=== PATIENT | male | born 1975 | race Caucasian/White ===

== ENCOUNTER 2017-01-27 18:15 | Observation (INO) | payer MEDICAID ==
[~2017-01-27] VITALS: Ht 182.9 cm; Wt 87.0 kg
--- NOTE | ~2017-01-27 | HP ---
PATIENT'S NAME: [facility]ER [facility] AGE: 41 Y [address] ROOM: [place] [address] LOCATION: [facility] ADMIT DATE: 01/27/2017 History & Physical DISCHARGE DATE: FAMILY PHYSICIAN: PHYSICIAN, UNKNOWN ATTENDING PHYSICIAN: ROLY DICKEY DATE OF SERVICE: CHIEF COMPLAINT: Seizures and polysubstance intoxication. HISTORY OF PRESENTING ILLNESS: This 41-year-old white male with a previous history of seizure disorder and medical noncompliance was transferred to [facility] from [facility] after a couple of seizures, which occurred earlier today. The available information in the chart is fragmented. Apparently, he had a seizure outside of the hospital and was taken in for an evaluation. He had another seizure while he was there and received Ativan while he was there. After his arrival here, he admitted that he may have missed "a couple of pills" referencing his seizure medication. He indicates that his last seizure was about 5 years ago. On my initial evaluation here on the floor, the patient was difficult to arouse. He appeared to be consciously avoiding interaction, but did become arousable with stimulation. He reported feeling "good." He denied headache, dizziness, or nausea. Denied any blurred vision. No numbness or tingling in his extremities. He indicates that his appetite has been good and he ate earlier today. He cannot remember what he ate. He has been stooling and voiding normally. He denies numbness or tingling in his extremities. There was some concern for polysubstance ingestion. A drug screen done at the outside facility was positive for cannabis and amphetamine. When asked the patient about his substance use, he did not answer me. ALLERGIES: SULFA, TYLENOL, AND INFLUENZA. ILLNESSES: 1. Seizure disorder. 2. Explosive personality disorder. 3. Polysubstance use. CURRENT MEDICATIONS: 1. Keppra (dose unknown). 2. Zonegran 100 mg 3 capsules b.i.d. PATIENT'S NAME: [facility]ER [facility] AGE: 41 Y [address] ROOM: [address] [address] LOCATION: [facility] ADMIT DATE: 01/27/2017 History & Physical DISCHARGE DATE: FAMILY PHYSICIAN: PHYSICIAN, UNKNOWN ATTENDING PHYSICIAN: ROLY DICKEY 3. Ibuprofen 200 mg q.i.d. p.r.n. FAMILY HISTORY: Negative for seizure disorder. SOCIAL HISTORY: He is unmarried and lives in [facility]. There is a significant history of tobacco use; although, he is unable to quantify. It is also suspected that he uses cannabis, methamphetamine, and alcohol concomitantly. REVIEW OF SYSTEMS: As per HPI. The remainder of review of systems are obtained in limited fashion and are otherwise negative. OBJECTIVE: VITAL SIGNS: Temperature 97.9, pulse 92, respirations 18, blood pressure 124/76, and O2 sat 97% on room air. GENERAL: He is lethargic, but arousable in no acute distress. He demonstrates aversion type behavior. SKIN: Supple, warm, and dry. There are numerous areas of excoriation over the face and upper extremities. There is some dirt and debris in the intertriginous areas, but no other skin rashes. HEENT: Otherwise, normocephalic. Sclerae nonicteric. Pupils equal, round, and reactive to light and accommodation. Extraocular movements appear intact. Nasal turbinates normal in appearance. Oropharynx clear. Mucous membranes are pink and moist. He is edentulous. NECK: Supple. No masses or adenopathy. No thyromegaly. No JVD. CHEST: Chest wall is symmetrical. HEART: Tachycardic, but regular. There are occasional extrasystoles. LUNGS: Coarse diminished with long expiratory phase. No vinny wheezes. No areas of consolidation. ABDOMEN: Soft, nontender. Bowel sounds are present. No mass or hepatosplenomegaly. and RECTAL: Not done. EXTREMITIES: Display no clubbing, edema, or cyanosis. NEUROLOGICAL: Mentation is slowed. There are no focal deficits. LABORATORY AND X-RAY DATA: A lactate was elevated at 9.5. CBC showed an elevated white blood cell count at 12.3. ASSESSMENT AND PLAN: 1. Seizure disorder. Suspect medication noncompliance and polysubstance use as contributing factors. He is currently stable. We will plan to resume Zonegran. We will use Ativan for breakthrough seizures tonight. We will PATIENT'S NAME: [facility] AGE: 41 Y [address] ROOM: [id number] [place], [place] [address] LOCATION: [facility] ADMIT DATE: 01/27/2017 History & Physical DISCHARGE DATE: FAMILY PHYSICIAN: PHYSICIAN, UNKNOWN ATTENDING PHYSICIAN: ROLY DICKEY await Neurology evaluation and further recommendations. 2. Lactic acidosis. Suspect this is secondary to seizure. He did receive some antibiotic therapy in [facility], but I do not see any clinical evidence for infection. We will follow lactate serially and hydrate him for now. 3. Polysubstance use including suspected methamphetamine. He did screen positive for amphetamine at the outside facility in addition to cannabis. We will monitor for withdrawal. We will also get a serum ethanol level and follow up on that when the results are known. In the meantime, we will schedule some Ativan, but hold it for sedation. We will have Care Management see him and explore options for treatment. 4. Explosive personality disorder. Currently, stable and controlled. We will try to manage symptoms carefully. Avoid confrontational interactions. 5. Deep venous thrombosis prophylaxis. We will follow the venous thromboembolus protocol. MD REINALDO PRYOR/hansel /[id number] D: [id number] T: [id number] HISTORY & PHYSICAL
[2017-01-27] MEDS ORDERED: ZONEGRAN100 M1 PO (21:04)
[2017-01-27] MEDS ORDERED: TYLENOL325 MG PO (21:05)
[2017-01-27] MEDS ORDERED: ADVIL LIQUI-GE200 MG PO (21:05)
--- NOTE | 2017-01-27 22:34 | NUR ---
PATIENT ARRIVES VIA COT ACCOMPANIED BY FLIGHT TEAM. PATIENT IS DROWSY BUT EASILY WOKEN BY NAME AND LIGHT TOUCH. PATIENT COMPLAINING OF A HEADACHE REQUESTING PAIN MEDICATION. DR. DICKEY NOTIFIED OF PATIENT'S ARRIVAL. NO ORDERS OBTAINED FOR PAIN AT THIS TIME UNTIL PHYSICIAN ASSESSMENT IS PERFORMED. PATIENT HAS MULTIPLE SCABS ALL OVER FACE AND ARMS. PATIENT REPORTS HE "PICKS." IN TRANSFER PAPERWORK THERE IS RESULTS FOR POSITIVE DRUG TESTS. IT WAS ALSO REPORTED THAT THE PATIENT AT ONE TIME BECAME COMBATIVE. THERE IS NO EVIDENCE OF THIS AT THIS TIME. PATIENT IS VERY COOPERATIVE AND SLEEPY. PATIENT RECEIVED A TOTAL DOSE OF 4 MG OF ATIVAN SINCE INITIAL TREATMENT IN THE ER OF TRANFERRING FACILITY. PATIENT IS PLACED IN SEIZURE PRECAUTIONS DUE TO RECENT GRAND MAL EVENTS TODAY. PATIENT'S MOTHER TIMI IS UPDATED ON HIS ARRIVAL AND PLAN OF CARE.
[2017-01-28 05:36] LABS: BASOPHIL # 0.1 K/uL (0.0-0.2); BASOPHIL % 0.8 %; EOSINOPHIL # 0.1 K/uL (0.0-0.5); EOSINOPHIL % 0.7 %; HEMATOCRIT 39.8 % (37.0-53.0); HEMOGLOBIN 14.2 g/dL (12.0-17.0); IMMATURE GRANULOCYTE % 0.4 %; LYMPHOCYTE % 26.3 %; MCHC 35.7 gm/dL (32.0-36.5); MONOCYTE # 0.8 K/uL (0.0-1.0); MPV 9.9 fl (9.4-12.4); NEUTROPHIL # (ANC) 4.6 K/uL (1.4-9.0); NEUTROPHIL % 60.8 %; NRBC % 0 /100WBC (0-0.00); PLATELET COUNT 189 K/uL (150-450); RBC 4.06 M/uL (4.00-6.00); WBC 7.5 K/uL (4.0-11.0)
[2017-01-28 05:49] LABS: ALBUMIN 3.3 gm/dL (3.5-5.0); ANION GAP 11.2 (10.0-19.0); BLOOD UREA NITROGEN 10 mg/dL (6-24); CALCIUM 7.9 mg/dL (8.5-10.5); CHLORIDE 113 mMol/L (96-110); CO2 19 mMol/L (22-32); CREATININE 1.1 mg/dL (0.6-1.3); ESTIMATED GFR (MDRD EQUATION) > 60; PHOSPHORUS 2.3 mg/dL (2.5-4.9); POTASSIUM 3.2 mMol/L (3.7-5.1); SODIUM 140 mMol/L (135-145)
--- NOTE | 2017-01-28 05:49 | NUR ---
Significant Event: PATIENT ADMITTED LAST NIGHT FOR GRAND MAL EPISODES AT PREVIOUS FACILITY. ON SEIZURE PRECAUTIONS. NO SEIZURES OBSERVED HERE. ALSO HISTORY OF BEING COMBATIVE. PATIENT HAS BEEN COOPERATIVE SO FAR. TESTED POSITIVE FOR CANNIBIS AND AMPHETEMINES. SCABBED AREAS TO ARMS AND FACE. PATIENT HAS NOT BEEN TAKING SEIZURE MEDICATIONS AND STATES HE HAS NO INTENTION TO DO SO. SOCIAL WORK CONSULT. Follow up:
--- NOTE | 2017-01-28 12:30 | NUR ---
Introduced self and role of care management to patient. He lives in [place] by himself. He states that he is able to do all his own ADL's. His mother lives in [place] also and does "help out if I need her to". We discussed the fact that he had missed several of his seizure medication doses. He states "I have had seizures since I was 17 and know how to take my nedication". I did ask him if he had just missed a few doses or had run out of his medication. He stated "I just missed taking it". I then explained that I had received a consult to talk with him about drug and alcohol treatment options. He very angrily states that he "is not going to any rehab". I asked him if he drank alcohol and he stated "no". I also asked if he used any street or illegal drugs and he screamed "no, I am not going to any type of rehab". I did explain that the consult came about because his drug screen was positive. I did offer to just give him some information on treatment options and he refused. I did ask him if he would have a ride home when he is discharged. He states that he "wants to go home today and my mom will have to come get me". He denies any discharge needs at this time. Will continue to follow.
--- NOTE | 2017-01-28 18:36 | NUR ---
Significant Event: ALERT & ORIENTED. SLEPT MOST OF DAY, AWAKE FOR BREAKFAST & LUNCH. VSS, AFEBRILE, ROOM AIR. NO SEIZURE ACTIVITY. SBA TO BATHROOM X3 VOIDS. IV FLUIDS AT 75 ML/HR. ALL DOSES OF PO LORAZEPAM HELD. PT EXPRESSES DESIRE TO BE DISMISSED, MOTHER TIMI DOES NOT WANT TO COME PICK HIM UP BECAUSE SHE THINKS HE NEEDS SUBSTANCE ABUSE TREATMENT. MYSELF AND RASHEEDA JIMENEZ EXPLAINED TO MOTHER THAT HE IS MEDICALLY STABLE AND CAN SEEK TX OUTPATIENT IF HE WISHES BUT WE CANNOT FORCE HIM. IV REMOVED. DISCHARGE INSTRUCTIONS DISCUSSED, PT VERBALIZED UNDERTSTANDING TO TAKE ANTI-EPILEPTIC MED BID. TAXI VOUCHER GIVEN TO PATIENT FOR RIDE TO [facility] SO THAT PT HAS SAFE PLACE TO STAY IN [place] HIS HOME IS IN [place], [place] ABOUT [address] HOURS AWAY. TRANSPORTED TO [facility] BY TRANSPORT STAFF VIA WHEELCHAIR.
== END 2017-01-28 17:48 | disposition disaster alternative care site (69) ==
LOC: GNTU 18:15 → EDSTATUS 18:15 → GICU 19:51
PROVIDERS: Family Medicine; ADMIT Internal Medicine
DX: G40.909 Epilepsy, unspecified, not intractable, without status epilepticus (principal); E87.2 Acidosis; F19.90 Other psychoactive substance use, unspecified, uncomplicated; F60.3 Borderline personality disorder; L98.9 Disorder of the skin and subcutaneous tissue, unspecified; Z88.2 Allergy status to sulfonamides; Z88.8 Allergy status to other drugs, medicaments and biological substances
CPT/HCPCS: G0378; G0480; J7030

== ENCOUNTER → 2017-01-27 | Outpatient (CLI) | payer MEDICAID ==
[~2017-01-27] MED LIST: ADVIL LIQUI-GE200 MG PO; TYLENOL325 MG PO; ZONEGRAN100 M1 PO
== END | disposition disaster alternative care site (69) ==
LOC: GAMB 19:40
DX: R41.82 Altered mental status, unspecified (principal); T65.91XA Toxic effect of unspecified substance, accidental (unintentional), initial encounter
CPT/HCPCS: A0425; A0428